=== PATIENT | female | born 1960 | race Caucasian/White ===

== ENCOUNTER → 2023-06-05 | Outpatient (CLI) | payer OTHER | END | disposition home or self-care (01) | LOC: RESCLI 09:50 | PROVIDERS: ATTEND Student in an Organized Health Care Education/Training Program | DX: M06.9 Rheumatoid arthritis, unspecified (principal); E78.49 Other hyperlipidemia; F41.1 Generalized anxiety disorder; Z88.2 Allergy status to sulfonamides; Z88.8 Allergy status to other drugs, medicaments and biological substances; Z88.0 Allergy status to penicillin; Z98.890 Other specified postprocedural states; Z79.899 Other long term (current) drug therapy ==